=== PATIENT | female | born 1970 | race Caucasian/White ===

== ENCOUNTER 2017-02-11 11:04 | Day surgery (SDC) | payer MEDICARE, MEDICAID ==
[~2017-02-11 11:04] MED LIST: ACETAMINOPHEN 1,000 MG/100 ML BTL IV ONE; CEFAZOLIN 2 Gram 2 GM/50 ML BAG IVPB ONE; FAMOTIDINE 20MG TABLET PO ONE; MECLIZINE 25 MG TABLET PO ONE; METOCLOPRAMIDE 10 MG TABLET PO ONE
[2017-02-11] MEDS ORDERED: LIDOCAINE 2% MDV (20MG/ML) 20ML VIAL IV ONE (14:00)
[2017-02-11] MEDS ORDERED: PROPOFOL 10 MG/ML VIAL IV ONE (14:00)
[2017-02-11] MEDS ORDERED: FENTANYL PF 100MCG/2ML VIAL IV ONE (14:00)
[2017-02-11] MEDS ORDERED: MORPHINE SULFATE 5 MG/ML PFS IVP ONE (14:00)
[2017-02-11] MEDS ORDERED: TEMAZEPAM 15 MG CAPSULE PO PRN ×2 (14:15)
[2017-02-11] MEDS ORDERED: OXYCODONE/APAP 10MG-325MG TABLET PO PRN (14:15)
[2017-02-11] MEDS ORDERED: METOCLOPRAMIDE HCL 10 MG/2 ML VIAL IVP PRN (14:15)
[2017-02-11] MEDS ORDERED: DIPHENHYDRAMINE HCL IV 50 MG/ML VIAL IVP PRN ×2 (14:15)
[2017-02-11] MEDS ORDERED: HYDROMORPHONE HCL 1 MG/ML CPJ IM PRN (14:15)
[2017-02-11] MEDS ORDERED: DIPHENHYDRAMINE HCL 25 MG CAPSULE PO PRN ×2 (14:15)
[2017-02-11] MEDS ORDERED: METOCLOPRAMIDE 10 MG TABLET PO PRN (14:15)
[2017-02-11] MEDS ORDERED: SENNOSIDES/DOCUSATE SODIUM UD CAPSULE PO PRN ×2 (14:15)
[2017-02-11] MEDS ORDERED: ACETAMINOPHEN 325 MG TAB PO PRN ×2 (14:15)
[2017-02-11] MEDS ORDERED: AL HYDROX/MAG HYDROX 30ML UD PO PRN (14:15)
[2017-02-11] MEDS ORDERED: HYDROCODONE/APAP 7.5/325MG TABLET PO PRN ×2 (14:15)
[2017-02-11] MEDS ORDERED: HYDROMORPHONE HCL 2 MG/ML VIAL IM PRN (14:15)
[2017-02-11] MEDS ORDERED: PATIENT OWN MED: CYCLOBENZAPRINE 10 MG PO PRN (14:17)
[2017-02-11] MEDS: OXYCODONE/APAP 10MG-325MG TABLET PO PRN (16:14)
[2017-02-11] MEDS ORDERED: LIDOCAINE 1% W/EPI 1:200,000 MPF 30ML SQ ONE (16:56)
[2017-02-11] MEDS ORDERED: HYDROMORPHONE HCL 2 MG/ML VIAL IV ONE (16:56)
[2017-02-11] MEDS ORDERED: CEFAZOLIN 1G VIAL IM ONE (16:56)
[2017-02-11] MEDS ORDERED: BUPIVACAINE 0.5% W/EPI MPF 30 ML VIAL IVP ONE (16:56)
[2017-02-11] MEDS: CEFAZOLIN 2 Gram 2 GM/50 ML BAG IVPB SCH (19:42)
[2017-02-11] MEDS: 0.9 % SODIUM CHLORIDE 10ML SYR IVP SCH (22:00)
[2017-02-12] MEDS: OXYCODONE/APAP 10MG-325MG TABLET PO PRN ×3 (00:08→11:48)
[2017-02-12] MEDS: CEFAZOLIN 2 Gram 2 GM/50 ML BAG IVPB SCH ×2 (03:44→11:39)
[2017-02-12] MEDS: 0.9 % SODIUM CHLORIDE 10ML SYR IVP SCH (09:53)
[2017-02-12] MEDS ORDERED: PATIENT OWN MED: DULOXETINE 30 MG PO SCH (10:00)
--- NOTE | 2017-02-17 12:16 | RADIOLOGY REPORT ---
EXAM: THORACIC SPINE, ONE VIEW HISTORY: STIMULATOR PLACEMENT. TECHNIQUE: A single AP view of the thoracic spine was performed. FINDINGS: The lead tips are at the T4-T5 level. IMPRESSION: THE LEAD TIPS ARE AT THE T4-T5 LEVEL. JOB NUMBER: [id number] MTDD
--- NOTE | 2017-02-18 19:03 | Operative Note ---
DATE OF SURGERY: 02/11/2017. PREOPERATIVE DIAGNOSES: 1. Post cervical laminectomy syndrome, ICD-10 Code M96.1. 2. 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 3. Spinal cord stimulator, 2 leads, internal generator, nonfunctional. OPERATION: 1. Incision with subsection and removal of 2 indwelling implanted spinal cord stimulators. 2. Incision with subsection and removal of internal pulse generator implanted. 3. Fluoroscopic guided epidural access at L3-4, curved Epimed needle loss of resistance, placement of spinal cord stimulator lead 1 a [employer] Infinion 16, 6 electrodes positioned left T4. 4. Complex programming, lead 1, 20 minutes. 5. Fluoroscopic guided epidural access at L3-4, placement of spinal cord stimulator lead 2, a [employer] Infinion 16, 6 electrodes positioned right T4. 6. Complex programming, lead 2, 20 minutes. 7. Incision with subsection and anchoring of lead 1 and lead 2 to deep fascia using a nonabsorbable suture and a [employer] locking anchor. 8. Incision and revision of subcutaneous pouch at previous generator site, left posterior gluteal margin. 9. Tunneling between pouches, placement of external portion of lead 1 and lead 2 into generator pouch, each lead interfaced with bifurcate extension, each bifurcate extension interfaced to the generator. 10. Placement of generator into pouch, securing to fascia with nonabsorbable suture, placement of leads into pouch, closure of incisions with Vicryl for fascia, running subcuticular Vicryl for skin, Dermabond closure. 11. Complex programming, internal generator, home use, 2 stimulators. Recovery room, 20 minutes. Surgeon: Octavio Crow DO. Anesthesia: Local sedation. Anesthesia Provider: CHIVO Alcazar. Indication: This patient presents with a history of an intractable thoracic radiculitis and intercostal neuritis. A spinal cord stimulator placed at [facility] within the last 5 years has failed to produce pain control. She was given the option to remove or replace. She opted to replace the current system, [employer]. PROCEDURE: Intravenous line, vital sign monitoring, IV sedation. Patient positioned prone. Sterile prep, sterile technique. Previous incision for the dual leads at L3-4 infiltrated. Incision made. A subcutaneous dissection was conducted to the anchors and the leads, which were removed intact. All electrodes accounted for. At the left posterior gluteal margin, generator pouch , skin incision made. A subcutaneous dissection was conducted to the generator , which was removed, along with the extensions. Antibiotic irrigation and Bovie hemostasis. At L3-4 left and right of the midline, using 2 separate curved access Epimed needles, 1 left, 1 right, with loss of resistance, the epidural space was accessed. On the left, spinal cord stimulator lead 1, a [employer] Infinion 16, 6 electrodes positioned left at T4. Epidural access, similar technique, right of the midline with spinal cord stimulator lead 2 also a [employer] Infinion 16, 6 electrodes positioned right at T4. Complex programming, lead 1, over 20 minutes, followed by complex programming of lead 2, over 20 minutes, resulting in a band of stimulation across the intercostals and chest wall. Patient indicating we were in all the right areas. At that point, she was given the option to implant or remove. She opted to implant. Skin infiltrated. The incisional site was revised to accommodate the new leads. Each lead was anchored at the supraspinous fascia using a [employer] locking anchor and nonabsorbable suture. The previous pouch at the left posterior superior gluteal margin was then revised and enlarged to accommodate the new generator identified as a [employer] programmable rechargeable. A tunneling tool was then used to carry the leads into the generator pouch, and each lead was interfaced with bifurcate extension. Each bifurcate extension was then interfaced to the generator. Antibiotic irrigation and Bovie for hemostasis. The generator was secured to the fascia with nonabsorbable suture. The leads were coiled and placed in their own pouch, and then the incisions were closed with Vicryl for fascia and running subcuticular Vicryl for skin. A Dermabond closure approximated the edges of the wound. She was transported to the recovery room stable, showing no side effects from the procedure or the sedation. She will be kept overnight for observation and discharged in the morning because of the surgical time and the incisions. IN THE MORNING DISCHARGE INSTRUCTIONS: 1. The sites will remain clean and dry. No showering or bathing in any way that would disrupt the dressings. If it happens, contact the clinic. 2. Standard medications resumed, including Levaquin the antibiotic 500 mg once a day for 14 days. All other medications reviewed and renewed. She has been given [place] 10/325 five a day for 10 days to manage incisional pain. 3. She is to keep the Dermabond dressing intact, although showering is an option. 4. She will be contacted by home in 3-5 days to set up the evaluation for the sites in 5-7 days. All other instructions provided. CC: Carley Jacobs, DO Octavio Crow, DO [place]
== END 2017-02-12 12:43 | disposition home or self-care (01) ==
LOC: SUR 11:04 → MEDSURG 14:44 → SUR 02-12 12:43
PROVIDERS: ATTEND Pain Medicine Interventional Pain Medicine
DX: T85.193A Other mechanical complication of implanted electronic neurostimulator, generator, initial encounter (principal); T85.192A Other mechanical complication of implanted electronic neurostimulator of spinal cord electrode (lead), initial encounter; M96.1 Postlaminectomy syndrome, not elsewhere classified; G58.0 Intercostal neuropathy; F17.200 Nicotine dependence, unspecified, uncomplicated; Z85.41 Personal history of malignant neoplasm of cervix uteri
CPT/HCPCS: 95972; 72020; 63663; 63685; 00300; J3010; J1170; J0690 ×2; J2270

== ENCOUNTER 2017-06-17 15:03 | Emergency (ER) | payer MEDICARE, MEDICAID ==
--- NOTE | 2017-06-17 15:44 | Emergency Department Record ---
History of Present Illness - General Chief complaint: ENT Stated complaint: LT EAR PAIN Time Seen by Provider: 06/17/17 15:33 Source: Patient, RN notes reviewed Mode of Arrival: Ambulatory - History of Present Illness Initial comments: left ear pain and she can not hear out of the left ear. MD complaint: Ear pain Onset/Timin -: Days(s) Location: L ear Severity: Moderate Severity scale (1-10): 8 Quality: Aching Consistency: Constant Improves with: None Worsens with: Eating, Movement Associated Symptoms: Hearing loss, Pain with swallowing - Related Data Home Medications Medication Instructions Recorded Confirmed Last Taken Cyclobenzaprine HCl [Flexeril] 10 mg PO TID 06/17/17 06/17/17 06/17/17 Duloxetine HCl [Cymbalta] 30 mg PO DAILY 06/17/17 06/17/17 06/17/17 Hydrocodone/Acetaminophen [[place] 1 tab PO QID PRN 06/17/17 06/17/17 06/17/17 10-325 Tablet] Previous Rx's Medication Instructions Recorded Hydrocodone/Acetaminophen [[place] 1 each PO Q6HR #10 tablet 06/17/17 5-325 Tablet] Neomycin/Polymyxin B Sulf/Hc 4 drop AFFEAR QID #10 ml 06/17/17 [Cortisporin Otic] Allergies Allergy/AdvReac Type Severity Reaction Status Date / Time Sulfa (Sulfonamide Allergy Severe SWELLING Verified 02/11/17 11:30 Antibiotics) OF THE TONGUE metronidazole [From Flagyl] Allergy Intermediate HIVES Verified 02/11/17 11:30 sulfamethoxazole Allergy Intermediate HIVES Verified 02/11/17 11:30 [From Bactrim] trimethoprim [From Bactrim] Allergy Intermediate HIVES Verified 02/11/17 11:30 Travel Screening - Travel/Exposure Within Last 30 Days Have you traveled within the last 30 days?: No - Travel/Exposure Within Last Year Have you traveled outside the [place] in the last year?: No - Additonal Travel Details Have you been exposed to anyone with a communicable illness?: No Review of Systems Reviewed: No additional complaints except as noted below Constitutional: Reports: As per HPI. Denies: Chills, Fever, Malaise, Night sweats, Weakness, Weight change Eyes: Reports: As per HPI. Denies: Eye discharge, Eye pain, Photophobia, Vision change ENT: Reports: As per HPI. Denies: Congestion, Dental pain, Ear pain, Epistaxis , Hearing loss, Throat pain Respiratory: Reports: As per HPI. Denies: Cough, Dyspnea, Hemoptysis, Stridor, Wheezes Cardiovascular: Reports: As per HPI. Denies: Arrhythmia, Chest pain, Dyspnea on exertion, Edema, Murmurs, Orthopnea, Palpitations, Paroxysmal nocturnal dyspnea, Rheumatic Fever, Syncope Endocrine: Reports: As per HPI. Denies: Fatigue, Heat or cold intolerance, Polydipsia, Polyuria Gastrointestinal: Reports: As per HPI. Denies: Abdominal pain, Constipation, Diarrhea, Hematemesis, Hematochezia, Melena, Nausea, Vomiting Genitourinary: Reports: As per HPI. Denies: Abnormal menses, Discharge, Dyspareunia, Dysuria, Frequency, Hematuria, Incontinence, Retention, Urgency Musculoskeletal: Reports: As per HPI. Denies: Arthralgia, Back pain, Gout, Joint swelling, Myalgia, Neck pain Skin: Reports: As per HPI. Denies: Bruising, Change in color, Change in hair/ nails, Lesions, Pruritus, Rash Neurological: Reports: As per HPI. Denies: Abnormal gait, Confusion, Headache, Numbness, Paresthesias, Seizure, Tingling, Tremors, Vertigo, Weakness Psychiatric: Reports: As per HPI. Denies: Anxiety, Auditory hallucinations, Depression, Homicidal thoughts, Suicidal thoughts, Visual hallucinations Hematological/Lymphatic: Reports: As per HPI. Denies: Anemia, Blood Clots, Easy bleeding, Easy bruising, Swollen glands Past Medical History - SOCIAL HISTORY Smoking Status: Current every day smoker Alcohol Use: Occasional Drug Use: None - RESPIRATORY Hx Respiratory Disorders: Yes Hx Asthma: Yes (no problems for 5 years) - CARDIOVASCULAR Hx Cardio Disorders: No - NEURO Hx Neuro Disorders: No - GI Hx GI Disorders: No - Hx Genitourinary Disorders: Yes Hx Bladder Problem: Yes (frequency and some stress urgency incontinence) Comment:: non functioning bladder stim. - ENDOCRINE Hx Endocrine Disorders: No - MUSCULOSKELETAL Hx Musculoskeletal Disorders: Yes Hx Arthritis: Yes (hands) Hx Back Injury: Yes (2000) Comment:: spinal fusion cervical - PSYCH Hx Psych Problems: Yes Hx Depression: Yes - HEMATOLOGY/ONCOLOGY Hx Hematology/Oncology Disorders: Yes Hx Cancer: Yes (cervical) Family Medical History Any Significant Family History?: Yes Hx Cancer: Mother Physical Exam - General General Appearance: Alert, Oriented x3, Cooperative, Mild distress - Head Head exam: Normal inspection - Eye Eye exam: Normal appearance, PERRL Pupils: Normal accommodation - ENT ENT exam: Mucous membranes moist, Normal orophraynx, Other (ear canal painful and irritatted) Ear exam: External canal tenderness, Other (wax impaction) Nasal Exam: Normal inspection. negative: Discharge, Sinus tenderness Mouth exam: Normal external inspection, Tongue normal Teeth exam: Normal inspection. negative: Dental caries Throat exam: Normal inspection. negative: Tonsillar erythema, Tonsillar exudate - Neck Neck exam: Normal inspection, Full ROM. negative: Tenderness - Respiratory Respiratory exam: Normal lung sounds bilaterally. negative: Respiratory distress - Cardiovascular Cardiovascular Exam: Regular rate, Normal rhythm, Normal heart sounds - GI/Abdominal GI/Abdominal exam: Soft, Normal bowel sounds. negative: Tenderness - Rectal Rectal exam: Deferred - exam: Deferred - Extremities Extremities exam: Normal inspection, Full ROM, Normal capillary refill. negative: Tenderness - Back Back exam: Reports: Normal inspection, Full ROM. Denies: Muscle spasm, Rash noted, Tenderness - Neurological Neurological exam: Alert, Normal gait, Oriented X3, Reflexes normal - Psychiatric Psychiatric exam: Normal affect, Normal mood - Skin Skin exam: Dry, Intact, Normal color, Warm Course Vital Signs 06/17/17 15:10 Temperature 99.1 F Pulse Rate 84 Respiratory 20 Rate Blood Pressure 124/82 Pulse Ox 100 - Reevaluation(s) Reevaluation #1: large amount of wax came out and can see TM no perforation and ear canal is swollen and infected 06/17/17 16:18 Disposition Clinical Impression: Otitis externa Qualifiers: Otitis externa type: swimmer's ear Chronicity: acute Laterality: left Qualified Code(s): H60.332 - Swimmer's ear, left ear Disposition: Home, Self-Care Condition: (1) Good Instructions: Otitis Externa (ED) Additional Instructions: follow up with family in 5 days Prescriptions: Hydrocodone/Acetaminophen [[place] 5-325 Tablet] 1 each PO Q6HR #10 tablet Neomycin/Polymyxin B Sulf/Hc [Cortisporin Otic] 4 drop AFFEAR QID #10 ml Forms: Patient Portal Access Time of Disposition: 15:52 Quality - Quality Measures Quality Measures: N/A - Blood Pressure Screening Does Patient Have Any of the Following: No Blood Pressure Classification: Pre-Hypertensive BP Reading Systolic Measurement: 124 Diastolic Measurement: 82 Screening for High Blood Pressure: < Pre-Hypertensive BP, F/U Documented > [ G8950] Pre-Hypertensive Follow-up Interventions: Referral to alternative/primary care provider.
[2017-06-17] MEDS: PROPARACAINE HCL OPTH 15ML BTL OPTH ONE (15:47)
== END 2017-06-17 16:29 | disposition home or self-care (01) ==
LOC: ER 15:03
DX: H60.332 Swimmer's ear, left ear (principal)
CPT/HCPCS: 69209; 99282

== ENCOUNTER 2017-08-06 18:51 | Emergency (ER) | payer MEDICARE, MEDICAID ==
[2017-08-06 20:10] LABS: URINE APPEARANCE CLEAR; URINE BILIRUBIN NEGATIVE (NEGATIVE); URINE BLOOD SMALL (NEGATIVE); URINE COLOR YELLOW; URINE GLUCOSE (UA) NEGATIVE (NEGATIVE); URINE KETONE TRACE (NEGATIVE); URINE LEUKOCYTE ESTERASE NEGATIVE (NEGATIVE); URINE NITRITE NEGATIVE (NEGATIVE); URINE PROTEIN NEGATIVE (NEGATIVE); URINE UROBILINOGEN 0.2 E.U./dL (0.20 - 1.00)
[2017-08-06 20:18] LABS: URINE MUCUS LIGHT; URINE WBC 0 - 2 (0-2/hpf)
--- NOTE | 2017-08-06 20:23 | Emergency Department Record ---
History of Present Illness - General Chief Complaint: Fall Injury Stated Complaint: FALL INJURY, HIP Time Seen by Provider: 08/06/17 19:29 Source: Patient Mode of Arrival: Ambulatory Limitations: No limitations - History of Present Illness Initial Comments: pt fell down 13 steps 16hrs ago. she went down on her buttocks. she has a bruise on her r arm and a bruise on her buttock. she is sore all over. she did not hit her head or have loc. she has no neck pain and no numbness. her main concern is that she has a bladder stimulator and the bruise is directly over it and she fears it could have broken it. she has been urinating normally since the fall. MD Complaint: Fall Onset/Timin -: Hour(s) Fall From: Down stairs (#) When Fall Occurred: Just prior to arrival Fall Witnessed: Yes, by family Place Fall Occurred: Home Loss of Consciousness: None Prolonged Down Time?: No Symptoms Prior to Fall: None Location: Buttocks Location - Extremities: Right: Arm Severity: Severe Severity scale (1-10): 9 Quality: Aching Context: Tripped/slipped Associated Symptoms: Other - [place] Coma Scale Eye Response: (4) Open spontaneously Motor Response: (6) Obeys commands Verbal Response: (5) Oriented [place] Total: 15 - Related Data Previous Rx's Medication Instructions Recorded Hydrocodone/Acetaminophen [[place] 1 each PO Q6HR #10 tablet 06/17/17 5-325 Tablet] Neomycin/Polymyxin B Sulf/Hc 4 drop AFFEAR QID #10 ml 06/17/17 [Cortisporin Otic] Allergies Allergy/AdvReac Type Severity Reaction Status Date / Time Sulfa (Sulfonamide Allergy Severe SWELLING Verified 02/11/17 11:30 Antibiotics) OF THE TONGUE metronidazole [From Flagyl] Allergy Intermediate HIVES Verified 02/11/17 11:30 sulfamethoxazole Allergy Intermediate HIVES Verified 02/11/17 11:30 [From Bactrim] trimethoprim [From Bactrim] Allergy Intermediate HIVES Verified 02/11/17 11:30 Travel Screening - Travel/Exposure Within Last 30 Days Have you traveled within the last 30 days?: No - Travel Symptoms Symptom Screening: None Review of Systems Reviewed: No additional complaints except as noted below Constitutional: Reports: As per HPI. Denies: Chills, Fever, Malaise, Night sweats, Weakness, Weight change Eyes: Reports: As per HPI. Denies: Eye discharge, Eye pain, Photophobia, Vision change ENT: Reports: As per HPI. Denies: Congestion, Dental pain, Ear pain, Epistaxis , Hearing loss, Throat pain Respiratory: Reports: As per HPI. Denies: Cough, Dyspnea, Hemoptysis, Stridor, Wheezes Cardiovascular: Reports: As per HPI. Denies: Arrhythmia, Chest pain, Dyspnea on exertion, Edema, Murmurs, Orthopnea, Palpitations, Paroxysmal nocturnal dyspnea, Rheumatic Fever, Syncope Endocrine: Reports: As per HPI. Denies: Fatigue, Heat or cold intolerance, Polydipsia, Polyuria Gastrointestinal: Reports: As per HPI. Denies: Abdominal pain, Constipation, Diarrhea, Hematemesis, Hematochezia, Melena, Nausea, Vomiting Genitourinary: Reports: As per HPI. Denies: Abnormal menses, Discharge, Dyspareunia, Dysuria, Frequency, Hematuria, Incontinence, Retention, Urgency Musculoskeletal: Reports: As per HPI. Denies: Arthralgia, Back pain, Gout, Joint swelling, Myalgia, Neck pain Skin: Reports: As per HPI. Denies: Bruising, Change in color, Change in hair/ nails, Lesions, Pruritus, Rash Neurological: Reports: As per HPI. Denies: Abnormal gait, Confusion, Headache, Numbness, Paresthesias, Seizure, Tingling, Tremors, Vertigo, Weakness Psychiatric: Reports: As per HPI. Denies: Anxiety, Auditory hallucinations, Depression, Homicidal thoughts, Suicidal thoughts, Visual hallucinations Hematological/Lymphatic: Reports: As per HPI. Denies: Anemia, Blood Clots, Easy bleeding, Easy bruising, Swollen glands Past Medical History - SOCIAL HISTORY Smoking Status: Current every day smoker Alcohol Use: None Drug Use: None - RESPIRATORY Hx Respiratory Disorders: Yes Hx Asthma: Yes (no problems for 5 years) - CARDIOVASCULAR Hx Cardio Disorders: No - NEURO Hx Neuro Disorders: No - GI Hx GI Disorders: No - Hx Genitourinary Disorders: Yes Hx Bladder Problem: Yes (frequency and some stress urgency incontinence) Comment:: bladder stim in place - ENDOCRINE Hx Endocrine Disorders: No - MUSCULOSKELETAL Hx Musculoskeletal Disorders: Yes Hx Arthritis: Yes (hands) Hx Back Injury: Yes (2000) Comment:: spinal fusion cervical - PSYCH Hx Psych Problems: Yes Hx Depression: Yes - HEMATOLOGY/ONCOLOGY Hx Hematology/Oncology Disorders: Yes Hx Cancer: Yes (cervical) Family Medical History Any Significant Family History?: Yes Hx Cancer: Mother Physical Exam - General General Appearance: Alert, Oriented x3, Cooperative, Mild distress - Head Head exam: Normal inspection - Eye Eye exam: Normal appearance, PERRL, EOMI Pupils: Normal accommodation - ENT ENT exam: Normal exam, Mucous membranes moist, Normal external ear exam, Normal orophraynx Ear exam: Normal external inspection. negative: External canal tenderness Nasal Exam: Normal inspection. negative: Discharge, Sinus tenderness Mouth exam: Normal external inspection, Tongue normal Teeth exam: Normal inspection. negative: Dental caries Throat exam: Normal inspection. negative: Tonsillar erythema, Tonsillar exudate - Neck Neck exam: Normal inspection, Full ROM. negative: Tenderness - Respiratory Respiratory exam: Normal lung sounds bilaterally. negative: Respiratory distress - Cardiovascular Cardiovascular Exam: Regular rate, Normal rhythm, Normal heart sounds - GI/Abdominal GI/Abdominal exam: Soft, Normal bowel sounds. negative: Tenderness - Rectal Rectal exam: Deferred - exam: Deferred - Extremities Extremities exam: Normal inspection, Full ROM, Normal capillary refill, Tenderness Image of Full Body: 1 - ecchymosis 2 - ecchymosis - Back Back exam: Reports: Normal inspection, Full ROM. Denies: Muscle spasm, Rash noted, Tenderness - Neurological Neurological exam: Alert, CN II-XII intact, Normal gait, Oriented X3 - Psychiatric Psychiatric exam: Normal affect, Normal mood - Skin Skin exam: Dry, Intact, Normal color, Warm Course Vital Signs 08/06/17 19:19 Temperature 99.2 F Pulse Rate 82 Respiratory 24 Rate Blood Pressure 133/104 Pulse Ox 100 Medical Decision Making - Lab Data Lab Results 08/06/17 Range/Units 20:00 Urine Color Yellow Urine Appearance Clear Urine pH 5.5 (5.0-8.0) Ur Specific [place] >= 1.030 (1.002-1.030) Urine Protein Negative (NEGATIVE) Urine Glucose (UA) Negative (NEGATIVE) Urine Ketones Trace H (NEGATIVE) Urine Blood Small H (NEGATIVE) Urine Nitrite Negative (NEGATIVE) Urine Bilirubin Negative (NEGATIVE) Urine Urobilinogen 0.2 (0.20 - 1.00) E.U./dL Ur Leukocyte Esterase Negative (NEGATIVE) Disposition Disposition: Discharge Clinical Impression: Fall (on) (from) other stairs and steps, initial encounter Contusion Qualifiers: Encounter type: initial encounter Contusion area: lower back Qualified Code(s) : S30.0XXA - Contusion of lower back and pelvis, initial encounter Disposition: Home, Self-Care Condition: (1) Good Instructions: Contusion in Adults (ED) Additional Instructions: follow up with family doctor. return sooner if worse. Forms: Patient Portal Access Quality - Quality Measures Quality Measures: N/A - Blood Pressure Screening Does Patient Have Any of the Following: No Blood Pressure Classification: Hypertensive Reading Systolic Measurement: 133 Diastolic Measurement: 104 Screening for High Blood Pressure: < Pre-Hypertensive BP, F/U Documented > [ G8950] Pre-Hypertensive Follow-up Interventions: Follow-up with rescreen every year.
--- NOTE | 2017-08-07 09:54 | RADIOLOGY REPORT ---
EXAM: PELVIS HISTORY: PAIN. TECHNIQUE: AP and oblique views of the pelvis were performed. FINDINGS: There is osteopenia. No evidence of fracture or dislocation. No lytic or blastic lesion. IMPRESSION: NEGATIVE FOR FRACTURE. JOB NUMBER: [id number] MTDD
== END 2017-08-06 20:45 | disposition home or self-care (01) ==
LOC: ER 18:51
DX: S30.0XXA Contusion of lower back and pelvis, initial encounter (principal); S40.021A Contusion of right upper arm, initial encounter; W10.9XXA Fall (on) (from) unspecified stairs and steps, initial encounter; Y92.009 Unspecified place in unspecified non-institutional (private) residence as the place of occurrence of the external cause; Z96.0 Presence of urogenital implants
CPT/HCPCS: 72190; 81001; 99283; 99284